=== PATIENT | female | born 1985 | race African-American/Black ===

== ENCOUNTER 2020-04-29 09:49 | Emergency (ER) | payer OTHER ==
[~2020-04-29] VITALS: Ht 175.3 cm; Wt 89.0 kg
[2020-04-29] MEDS ORDERED: ACETAMINOPHEN 325MG TABLET PO ONE (10:30)
[2020-04-29] MEDS ORDERED: ACET-2708 MT (10:39)
[2020-04-29 12:30] VITALS: BP 128/72
== END 2020-04-29 12:59 | disposition left against medical advice (07) ==
LOC: ER 09:49
DX: O26.893 Other specified pregnancy related conditions, third trimester (principal); M54.2 Cervicalgia; M54.9 Dorsalgia, unspecified; Z3A.37 37 weeks gestation of pregnancy; V49.59XA Passenger injured in collision with other motor vehicles in traffic accident, initial encounter; Y93.89 Activity, other specified; Y92.89 Other specified places as the place of occurrence of the external cause; Y99.8 Other external cause status
CPT/HCPCS: 76805; 93005; 99284; Z7610

== ENCOUNTER 2020-06-12 17:42 | Inpatient (IN) | payer OTHER ==
[~2020-06-12] VITALS: Ht 167.6 cm; Wt 98.0 kg
[~2020-06-12 17:42] MED LIST: ACET-2708 MT
[2020-06-12] MEDS ORDERED: MISOPROSTOL 200MCG TABLET VG SCH (18:00)
[2020-06-12] MEDS ORDERED: LACTATED RINGERS 1,000 ML IV SCH (18:00)
[2020-06-12] MEDS ORDERED: METHYLERGONOVINE MALEATE 0.2 MG/ML IM PRN (18:00)
[2020-06-12] MEDS ORDERED: NALOXONE HCL 0.4 MG/ML 1ML VIAL IM PRN (18:00)
[2020-06-12] MEDS ORDERED: DEXT 5%/LR + PITOCIN 20UNITS/L 1,000 ML IV SCH (18:00)
[2020-06-12] MEDS ORDERED: BUTORPHANOL TARTRATE 2 MG/ML VIAL IV PRN ×2 (18:00→19:15)
[2020-06-12] MEDS ORDERED: CARBOPROST TROMETHAMINE 250 MCG/ML AMPUL IM PRN (18:00)
[2020-06-12 18:37] LABS: BASOPHILS % 0.4 % (0.0-2.0); EOSINOPHILS % 0.2 % (0.0-5.0); HEMATOCRIT. 39.3 % (36.0-48.0); HEMOGLOBIN. 13.4 g/dL (12.0-16.0); LYMPHOCYTES % 10.7 % (20.0-50.0); MEAN CORPUSCULAR HEMOGLOBIN 31.2 pg (28.0-32.0); MEAN CORPUSCULAR VOLUME 91.4 fL (81.0-99.0); MEAN PLATELET VOLUME 9.8 fl (7.4-10.4); MONOCYTES % 6.5 % (2.0-8.0); NEUTROPHILS % 82.2 % (40.0-76.0); PLATELET 181 x1000/uL (130-400); RED CELL DISTRIBUTION WIDTH 14.2 % (11.6-14.6)
[2020-06-12] MEDS ORDERED: MORPHINE SULFATE/PF 1MG/ML 10ML AMP ONE (18:46)
[2020-06-12] MEDS ORDERED: EPHEDRINE SULFATE 50MG/ML VIAL ONE (18:49)
[2020-06-12] MEDS ORDERED: PHENYLEPHRINE HCL 10 MG/ML 1ML (IV VIAL) IV ONE (18:49)
[2020-06-12 18:55] LABS: INR 0.9; PARTIAL THROMBOPLASTIN TIME 29.6 sec (23.4-31.0); PROTHROMBIN TIME 9.6 sec (9.6-11.0)
[2020-06-12] MEDS ORDERED: CEFAZOLIN SODIUM 1000MG/VIAL ONE (19:05)
[2020-06-12] MEDS ORDERED: SODIUM CHLORIDE 0.9% 10ML VIAL ONE (19:05)
[2020-06-12] MEDS ORDERED: KETOROLAC 30MG/ML VIAL IV PRN (19:15)
[2020-06-12] MEDS ORDERED: DIPHENHYDRAMINE 50MG/ML VIAL IV PRN (19:15)
[2020-06-12] MEDS ORDERED: CITRIC ACID/SODIUM CITRATE SOLN 30ML UDC PO NR (19:15)
[2020-06-12 19:16] LABS: HEPATITIS B SURFACE ANTIGEN NEGATIVE
[2020-06-12] MEDS ORDERED: OXYTOCIN 10 UNITS/ML 1ML ONE ×2 (19:32→20:35)
[2020-06-12 19:33] LABS: CHLORIDE 107 mEq/L (98-107)
[2020-06-12] MEDS ORDERED: HEMORRHOIDAL SUPP PR PRN (21:00)
[2020-06-12] MEDS ORDERED: BISACODYL 10MG SUPP PR PRN (21:00)
[2020-06-12] MEDS ORDERED: ACETAMINOPHEN WITH CODEINE 300/30MG TABLET PO PRN (21:00)
[2020-06-12] MEDS ORDERED: DOCUSATE SODIUM 100MG CAPSULE PO SCH (21:00)
[2020-06-12] MEDS ORDERED: ONDANSETRON HCL 4MG/2ML INJ IV PRN (21:00)
[2020-06-12] MEDS ORDERED: IBUPROFEN 400MG TABLET PO PRN (21:00)
[2020-06-12 21:43] LABS: CLARITY URINE CLOUDY (CLEAR); COLOR URINE DARK YELLOW (YELLOW); KETONES URINE 2+ (NEGATIVE); LEUKOCYTE ESTERASE URINE 1+ (NEGATIVE); NITRITE URINE NEGATIVE (NEGATIVE); OCCULT BLOOD URINE 2+ (NEGATIVE); PH URINE 6.5 (4.5-8.0); PROTEIN URINE 1+ (NEGATIVE); SPECIFIC GRAVITY URINE 1.026 (1.005-1.030); UROBILINOGEN URINE 0.2 E.U./dL (0.2-1.0)
[2020-06-12] MEDS: DEXT 5%/LR + PITOCIN 20UNITS/L 1,000 ML IV SCH (21:50)
[2020-06-12 21:54] LABS: *AMPHETAMINES SCREEN URINE NEGATIVE (NEGATIVE); *BARBITURATES SCREEN URINE NEGATIVE (NEGATIVE); *BENZODIAZEPINES SCREEN URINE NEGATIVE (NEGATIVE); *COCAINE SCREEN URINE NEGATIVE (NEGATIVE)
[2020-06-12 21:55] LABS: CANNABINOID URINE SCREEN NEGATIVE (NEGATIVE); METHADONE URINE SCREEN NEGATIVE (NEGATIVE); OPIATES URINE SCREEN NEGATIVE (NEGATIVE); PHENCYCLIDINE URINE SCREEN NEGATIVE (NEGATIVE)
[2020-06-12 23:25] VITALS: BP 132/62
[2020-06-12 23:55] VITALS: BP 132/67
[2020-06-13 00:25] VITALS: BP 127/73
[2020-06-13] MEDS: DEXT 5%/LR + PITOCIN 20UNITS/L 1,000 ML IV SCH (02:44)
[2020-06-13 04:00] VITALS: BP 126/80
[2020-06-13 06:14] LABS: BASOPHILS % 0.2 % (0.0-2.0); EOSINOPHILS % 0.1 % (0.0-5.0); HEMATOCRIT. 35.5 % (36.0-48.0); HEMOGLOBIN. 11.8 g/dL (12.0-16.0); LYMPHOCYTES % 7.5 % (20.0-50.0); MEAN CORPUSCULAR HEMOGLOBIN 30.8 pg (28.0-32.0); MEAN CORPUSCULAR VOLUME 92.4 fL (81.0-99.0); MEAN PLATELET VOLUME 10.1 fl (7.4-10.4); MONOCYTES % 5.9 % (2.0-8.0); NEUTROPHILS % 86.3 % (40.0-76.0); PLATELET 157 x1000/uL (130-400); RED BLOOD CELL COUNT 3.84 mill/uL (4.2-5.4); RED CELL DISTRIBUTION WIDTH 14.3 % (11.6-14.6)
[2020-06-13 08:00] VITALS: BP 118/72
[2020-06-13] MEDS: IBUPROFEN 800MG TABLET PO PRN ×2 (10:50→21:10)
[2020-06-13] MEDS: FERROUS SULFATE 325MG TABLET PO SCH (10:51)
[2020-06-13] MEDS: PRENATAL VIT/FE FUMARATE/FA TABLET PO SCH (10:51)
[2020-06-13 16:38] VITALS: BP 111/67
[2020-06-13 19:20] VITALS: BP 124/79
[2020-06-13] MEDS: SIMETHICONE 80MG TABLET CHEW PO SCH (21:08)
[2020-06-13] MEDS: HYDROCODONE/ACETAMINOPHEN 5/325MG TABLET PO PRN (22:31)
[2020-06-13 23:50] VITALS: BP 128/81
[2020-06-14 03:46] VITALS: BP 126/73
[2020-06-14 08:00] VITALS: BP 129/70
[2020-06-14] MEDS: FERROUS SULFATE 325MG TABLET PO SCH ×2 (08:35→13:15)
[2020-06-14] MEDS: PRENATAL VIT/FE FUMARATE/FA TABLET PO SCH (08:35)
[2020-06-14] MEDS: SIMETHICONE 80MG TABLET CHEW PO SCH ×2 (08:35→13:15)
[2020-06-14] MEDS: HYDROCODONE/ACETAMINOPHEN 5/325MG TABLET PO PRN ×2 (08:36→14:46)
[2020-06-14] MEDS: IBUPROFEN 800MG TABLET PO PRN (13:15)
[2020-06-14 16:05] VITALS: BP 116/66
[2020-06-14 20:00] VITALS: BP 111/62
[2020-06-14] MEDS ORDERED: IBUP-2030 MT (20:06)
[2020-06-14 20:12] VITALS: BP 111/62
== END 2020-06-14 20:50 | disposition home or self-care (01) | DRG 788 ==
LOC: OBSVTOIN 17:42 → 8 EST LDRP 17:42 → 8EST 23:58
PROVIDERS: ADMIT Obstetrics & Gynecology; ATTEND Obstetrics & Gynecology
PROC: 10D00Z1 Extraction of Products of Conception, Low, Open Approach (ICD-10-PCS; principal; 2020-06-12)
DX: O34.211 Maternal care for low transverse scar from previous cesarean delivery (principal); O48.0 Post-term pregnancy; O77.0 Labor and delivery complicated by meconium in amniotic fluid; Z37.0 Single live birth; Z3A.41 41 weeks gestation of pregnancy
CPT/HCPCS: 36415; 80053; 80305; 81003; 84550; 85025; 85384; 86592; 86703; 86762; 86850; 86900; 86920; 87340; 88307; 99281; J0690; J1885; J2274; J2370; J2590; J3490